=== PATIENT | female | born 1990 | race Two or more races ===

== ENCOUNTER 2024-11-28 08:20 | Outpatient (CLI) | payer OTHER | END 2024-11-28 08:33 | disposition home or self-care (01) | LOC: SONOGRAMA 08:20 | PROVIDERS: ATTEND General Practice | DX: R10.9 Unspecified abdominal pain (principal); R10.2 Pelvic and perineal pain ==

== ENCOUNTER 2025-04-11 10:47 | Emergency (ER) | payer OTHER ==
[~2025-04-11] VITALS: Ht 160 cm; Wt 56.7 kg
[2025-04-11] MEDS ORDERED: ZYRTEC10 M3 PO (11:15)
[2025-04-11 11:16] VITALS: BP 125/85; O2SAT 100
[2025-04-11] MEDS ORDERED: RINGERS SOLUTION,LACTATED 1,000 ML IV STA (12:20)
[2025-04-11] MEDS ORDERED: HYOSCYAMINE SULFATE 0.125 MG TAB.SUBL SL ONE (12:30)
[2025-04-11] MEDS ORDERED: HYOSCYAMINE SULFATE 0.125 MG TAB.SUBL ONE (13:23)
[2025-04-11 13:49] LABS: BASO % 0.6 % (0.1-1.2); EOS # 0.53 (0.04-0.54); EOS % 9.8 % (0.7-7.0); HEMATOCRIT 35.3 % (34.1-44.9); HEMOGLOBIN 12.1 g/dL (11.2-15.7); LYMPH # 2.05 (1.18-3.74); LYMPH % 37.9 % (19.3-53.1); MEAN CORPUSCULAR HEMOGLOBIN 29.7 pg (25.6-32.2); MONO # 0.38 (0.24-0.82); NEUT # 2.41 (1.56-6.13); NEUT % 44.5 % (34.0-71.1); PLATELET COUNT 217 K/uL (163-369); RED BLOOD COUNT 4.07 M/uL (3.93-5.22); RED CELL DISTRIBUTION WIDTH 12.2 % (11.6-14.4)
[2025-04-11 14:33] LABS: URINE APPEARANCE Cloudy; URINE BILIRRUBIN Negative (NEGATIVE); URINE BLOOD Negative; URINE COLOR Yellow; URINE GLUCOSE Negative (NEGATIVE); URINE KETONE Trace (NEGATIVE); URINE LEUKOCYTE Small; URINE NITRATE Negative; URINE PROTEIN Negative (NEGATIVE); URINE UROBILINOGEN 0.2 E.U./dl
[2025-04-11 14:37] LABS: URINE BACTERIA 1966.9 uL (0.0-1933); URINE EPITHELIAL CELLS 24.3 uL (0.0-38.8); URINE RBC 14.4 uL (0.0-20.8); URINE WBC 48.1 uL (0.0-23.2)
[2025-04-11 14:44] LABS: ALBUMIN 3.8 gm/dL (3.4-5.0); BILIRUBIN TOTAL 1.19 mg/dL (0.3-1.2); CREATININE SERUM 0.64 mg/dL (0.55-1.02); GFR 104.41; POTASSIUM 4.18 mEq/L (3.5-5.1); TOTAL PROTEIN 7.1 gm/dL (6.4-8.2)
[2025-04-11 14:58] LABS: BILIRUBIN,CONJUGATED 0.2 mg/dL (0.0-0.2); BILIRUBIN,UNCONJUGATED 0.99 mg/dL (0.0-0.6)
[2025-04-11 15:10] LABS: URINE CAST 0.14 uL (0.0-1.40)
== END 2025-04-11 20:09 | disposition home or self-care (01) ==
LOC: ER 10:47
PROVIDERS: General Practice
DX: R10.84 Generalized abdominal pain (principal); Z88.8 Allergy status to other drugs, medicaments and biological substances; Z88.6 Allergy status to analgesic agent; Z91.012 Allergy to eggs